=== PATIENT | female | born 1995 | race Caucasian/White ===

== ENCOUNTER 2017-10-14 20:12 | Emergency (ER) | END 2017-10-14 23:53 | disposition home or self-care (01) ==

== ENCOUNTER 2017-12-26 16:37 | Emergency (ER) | END 2017-12-27 00:46 | disposition home or self-care (01) ==

== ENCOUNTER 2018-03-16 16:43 | Emergency (ER) | END 2018-03-16 17:48 | disposition home or self-care (01) ==

== ENCOUNTER 2018-04-04 12:06 | Emergency (ER) | END 2018-04-04 14:44 | disposition home or self-care (01) ==

== ENCOUNTER 2018-05-24 12:48 | Emergency (ER) | END 2018-05-24 13:48 | disposition home or self-care (01) ==